=== PATIENT | female | born 1985 | race Hispanic/Latino ===

== ENCOUNTER 2018-10-11 15:52 | Emergency (ER) | payer SELFPAY ==
[2018-10-11 16:30] LABS: HCG,QUAL RESULT POSITIVE (NEGATIVE)
[2018-10-11 16:31] LABS: APPEARANCE,URINE Clear (CLEAR); BILIRUBIN,URINE Negative (NEGATIVE); COLOR,URINE Yellow (YELLOW); GLUCOSE, URINE (UA) Negative (NEGATIVE); KETONES,URINE Negative (NEGATIVE); LEUKOCYTE ESTERASE ,URINE Negative (NEGATIVE); NITRATE,URINE Negative (NEGATIVE); OCCULT BLOOD,URINE Negative (NEGATIVE); PROTEIN,URINE Negative (NEGATIVE)
[2018-10-11] MEDS ORDERED: SODIUM CHLORIDE 0.9% 1000ML 1,000 ML IV ONE (17:08)
[2018-10-11 17:15] LABS: BASOPHILS % (AUTO) 0.6 % (0.0-5.0); EOSINOPHILS % (AUTO) 0.5 % (0.0-8.0); HEMATOCRIT 39.2 % (36-48); LYMPHOCYTES % (AUTO) 23.7 % (21.0-51.0); MEAN CORPUSCULAR HGB CONC 34.6 g/dL (32.0-36.0); MEAN CORPUSCULAR VOLUME 95.3 fL (79-99); MONOCYTES % (AUTO) 8.7 % (3.0-13.0); NEUTROPHILS % (AUTO) 66.5 % (40.0-77.0); PLATELET COUNT (AUTO) 220 K/uL (130-400); RED BLOOD CELL COUNT(AUTO) 4.12 MIL/uL (4.00-5.50); RED CELL DISTRIBUTION WIDTH 13.1 % (11.0-15.5); WHITE BLOOD COUNT (AUTO) 5.5 K/uL (4.8-10.8)
[2018-10-11 17:26] LABS: CREATININE 0.6 mg/dL (0.5-1.5); POTASSIUM 3.4 mmol/L (3.5-5.1)
[2018-10-11 17:53] LABS: BILIRUBIN,DIRECT 0.1 mg/dL (0.0-0.3); BILIRUBIN,TOTAL 0.4 mg/dL (0.2-1.0); TOTAL PROTEIN, SERUM 7.7 g/dL (6.0-8.3)
[2018-10-11] MEDS ORDERED: ACETAMINOPHEN 325 MG TAB ONE (18:03)
== END 2018-10-11 18:09 | disposition home or self-care (01) ==
LOC: EDH 15:52
DX: O26.891 Other specified pregnancy related conditions, first trimester (principal); R10.2 Pelvic and perineal pain; R10.31 Right lower quadrant pain; Z3A.01 Less than 8 weeks gestation of pregnancy
CPT/HCPCS: 36415; 76705; 76801; 80048; 80076; 81003; 81025; 84702; 85025; 86900; 86901; 99284; J7030

== ENCOUNTER 2019-06-06 00:14 | Emergency (ER) | payer OTHER ==
[2019-06-06 00:42] LABS: BASOPHILS % (AUTO) 0.4 % (0.0-5.0); EOSINOPHILS % (AUTO) 0.9 % (0.0-8.0); HEMATOCRIT 41.8 % (36-48); LYMPHOCYTES % (AUTO) 27.3 % (21.0-51.0); MEAN CORPUSCULAR HEMOGLOBIN 33.5 pg (27.0-33.0); MEAN CORPUSCULAR HGB CONC 34.4 g/dL (32.0-36.0); MEAN CORPUSCULAR VOLUME 97.5 fL (79-99); MONOCYTES % (AUTO) 6.9 % (3.0-13.0); NEUTROPHILS % (AUTO) 64.5 % (40.0-77.0); NUCLEATED RED BLOOD CELLS 0.1 % (0.0-0.19); PLATELET COUNT (AUTO) 187 K/uL (130-400); RED BLOOD CELL COUNT(AUTO) 4.29 MIL/uL (4.00-5.50); RED CELL DISTRIBUTION WIDTH 13.1 % (11.0-15.5); WHITE BLOOD COUNT (AUTO) 7.2 K/uL (4.8-10.8)
[2019-06-06 00:47] LABS: APPEARANCE,URINE Clear (CLEAR); BILIRUBIN,URINE Negative (NEGATIVE); COLOR,URINE Yellow (YELLOW); GLUCOSE, URINE (UA) Negative (NEGATIVE); KETONES,URINE Negative (NEGATIVE); LEUKOCYTE ESTERASE ,URINE Negative (NEGATIVE); NITRATE,URINE Negative (NEGATIVE); OCCULT BLOOD,URINE Negative (NEGATIVE); PROTEIN,URINE Negative (NEGATIVE)
[2019-06-06 00:48] LABS: CREATININE 0.7 mg/dL (0.5-1.5); POTASSIUM 3.3 mmol/L (3.5-5.1)
[2019-06-06 00:50] LABS: HCG,QUAL RESULT POSITIVE (NEGATIVE)
[2019-06-06 00:53] LABS: ALBUMIN 4.4 g/dL (3.5-5.0); BILIRUBIN,DIRECT 0.1 mg/dL (0.0-0.3); BILIRUBIN,TOTAL 0.3 mg/dL (0.2-1.0); TOTAL PROTEIN, SERUM 8.3 g/dL (6.0-8.3)
== END 2019-06-06 02:01 | disposition home or self-care (01) ==
LOC: EDH 00:14
DX: O26.891 Other specified pregnancy related conditions, first trimester (principal); O34.81 Maternal care for other abnormalities of pelvic organs, first trimester; R10.31 Right lower quadrant pain; N83.299 Other ovarian cyst, unspecified side; Z3A.01 Less than 8 weeks gestation of pregnancy
CPT/HCPCS: 36415; 76817; 80048; 80076; 81003; 81025; 84702; 85025

== ENCOUNTER 2019-07-22 19:35 | Emergency (ER) | payer OTHER ==
[2019-07-22] MEDS ORDERED: SODIUM CHLORIDE 0.9% 1000ML 1,000 ML IV ONE (20:00)
[2019-07-22] MEDS ORDERED: ONDANSETRON HCL 4 MG/2 ML VIAL ONE (20:01)
[2019-07-22 20:20] LABS: BASOPHILS % (AUTO) 0.6 % (0.0-5.0); EOSINOPHILS % (AUTO) 0.2 % (0.0-8.0); HEMATOCRIT 39.4 % (36-48); LYMPHOCYTES % (AUTO) 20.5 % (21.0-51.0); MEAN CORPUSCULAR HEMOGLOBIN 33.7 pg (27.0-33.0); MEAN CORPUSCULAR VOLUME 93.7 fL (79-99); MONOCYTES % (AUTO) 5.3 % (3.0-13.0); NEUTROPHILS % (AUTO) 73.4 % (40.0-77.0); PLATELET COUNT (AUTO) 161 K/uL (130-400); RED BLOOD CELL COUNT(AUTO) 4.21 MIL/uL (4.00-5.50); RED CELL DISTRIBUTION WIDTH 13.1 % (11.0-15.5); WHITE BLOOD COUNT (AUTO) 6.6 K/uL (4.8-10.8)
[2019-07-22 20:35] LABS: CREATININE 0.6 mg/dL (0.5-1.5); POTASSIUM 3.3 mmol/L (3.5-5.1)
[2019-07-22 21:01] LABS: BILIRUBIN,TOTAL 0.8 mg/dL (0.2-1.0)
[2019-07-22 21:57] LABS: APPEARANCE,URINE Clear (CLEAR); BILIRUBIN,URINE Negative (NEGATIVE); COLOR,URINE Dark Yellow (YELLOW); GLUCOSE, URINE (UA) Negative (NEGATIVE); KETONES,URINE >=160 mg/dL (NEGATIVE); LEUKOCYTE ESTERASE ,URINE Trace (NEGATIVE); NITRATE,URINE Negative (NEGATIVE); OCCULT BLOOD,URINE Negative (NEGATIVE); PROTEIN,URINE Negative (NEGATIVE)
[2019-07-22 22:06] LABS: BACTERIA,URINE Few /HPF (None Seen)
[2019-07-22 22:07] LABS: MUCUS,URINE Few LPF (None Seen); SQUAMOUS EPITHELIAL CELL,UR 0-2 /HPF (0-2)
[2019-07-22] MEDS ORDERED: LACTATED RINGERS 1000ML 1,000 ML IV ONE (22:46)
[2019-07-22] MEDS ORDERED: POTASSIUM BICARB/CIT AC 25 MEQ TABLET.EFF ONE (22:46)
== END 2019-07-23 00:10 | disposition home or self-care (01) ==
LOC: EDH 19:35
DX: O26.891 Other specified pregnancy related conditions, first trimester (principal); R11.2 Nausea with vomiting, unspecified; R10.9 Unspecified abdominal pain; Z3A.11 11 weeks gestation of pregnancy
CPT/HCPCS: 36415; 76801; 80053; 81001; 84702; 85025; 96361; 96374; 99285; J2405; J7030; J7120

== ENCOUNTER 2019-07-26 07:46 | Emergency (ER) | payer OTHER ==
[2019-07-26 08:06] LABS: BILIRUBIN,URINE SMALL (NEGATIVE); COLOR,URINE YELLOW (YELLOW); GLUCOSE, URINE (UA) NEGATIVE (NEGATIVE); KETONES,URINE >=80 mg/dL (NEGATIVE); LEUKOCYTE ESTERASE ,URINE MODERATE (NEGATIVE); NITRATE,URINE NEGATIVE (NEGATIVE); OCCULT BLOOD,URINE LARGE (NEGATIVE); PROTEIN,URINE 30 mg/dL (NEGATIVE)
[2019-07-26 08:09] LABS: APPEARANCE,URINE CLOUDY (CLEAR)
[2019-07-26 08:46] LABS: BACTERIA,URINE Few /HPF (None Seen)
[2019-07-26] MEDS ORDERED: ACETAMINOPHEN 325 MG TAB ONE (08:50)
== END 2019-07-26 09:01 | disposition home or self-care (01) ==
LOC: EDH 07:46
DX: O20.0 Threatened abortion (principal); O23.42 Unspecified infection of urinary tract in pregnancy, second trimester; Z3A.15 15 weeks gestation of pregnancy
CPT/HCPCS: 81001

== ENCOUNTER 2019-08-24 21:37 | Emergency (ER) | payer MEDICAID, OTHER ==
[2019-08-24 22:40] LABS: APPEARANCE,URINE Clear (CLEAR); BILIRUBIN,URINE Negative (NEGATIVE); COLOR,URINE Yellow (YELLOW); GLUCOSE, URINE (UA) Negative (NEGATIVE); KETONES,URINE Negative (NEGATIVE); LEUKOCYTE ESTERASE ,URINE Trace (NEGATIVE); NITRATE,URINE Negative (NEGATIVE); OCCULT BLOOD,URINE Negative (NEGATIVE); PH,URINE 8.5 (5.0-8.0); PROTEIN,URINE Negative (NEGATIVE)
[2019-08-24] MEDS ORDERED: PROMETHAZINE HCL 25 MG/ML 1ML AMPULE IM ONE (22:47)
[2019-08-24 22:51] LABS: AMORPHOUS SEDIMENT,UR Few /LPF (None Seen); BACTERIA,URINE Few /HPF (None Seen); RBC,URINE None Seen /HPF (0-1)
[2019-08-24 22:54] LABS: BASOPHILS % (AUTO) 0.3 % (0.0-5.0); HEMATOCRIT 33.5 % (36-48); LYMPHOCYTES % (AUTO) 27.6 % (21.0-51.0); MEAN CORPUSCULAR HEMOGLOBIN 35.1 pg (27.0-33.0); MEAN CORPUSCULAR HGB CONC 36.8 g/dL (32.0-36.0); MEAN CORPUSCULAR VOLUME 95.5 fL (79-99); MONOCYTES % (AUTO) 8.3 % (3.0-13.0); NEUTROPHILS % (AUTO) 62.8 % (40.0-77.0); PLATELET COUNT (AUTO) 178 K/uL (130-400); RED BLOOD CELL COUNT(AUTO) 3.51 MIL/uL (4.00-5.50); RED CELL DISTRIBUTION WIDTH 14.1 % (11.0-15.5)
[2019-08-24 23:06] LABS: CREATININE 0.5 mg/dL (0.5-1.5); POTASSIUM 3.6 mmol/L (3.5-5.1)
[2019-08-24 23:10] LABS: ALBUMIN 3.2 g/dL (3.5-5.0); BILIRUBIN,TOTAL 0.4 mg/dL (0.2-1.0); MAGNESIUM 1.9 mg/dL (1.80-2.40); TOTAL PROTEIN, SERUM 6.6 g/dL (6.0-8.3)
[2019-08-24 23:17] LABS: PLATELET MORPHOLOGY PLT CLUMPS PRESENT
== END 2019-08-25 00:32 | disposition home or self-care (01) ==
LOC: EDH 21:37
DX: O21.0 Mild hyperemesis gravidarum (principal); Z3A.15 15 weeks gestation of pregnancy
CPT/HCPCS: 36415; 80053; 81001; 83735; 85025; 87804 ×2; 96372; 99284; J2550

== ENCOUNTER 2022-09-07 08:32 | Emergency (ER) | payer MEDICAID, OTHER ==
[~2022-09-07] VITALS: Ht 157.5 cm; Wt 80.3 kg
[2022-09-07] MEDS ORDERED: ACETAMINOPHEN 500 MG TABLET PO STA (09:00)
[2022-09-07 09:15] VITALS: BP 126/74
[2022-09-07] MEDS ORDERED: KETOROLAC 30MG VIAL (30MG/ML) IM ONE (10:30)
[2022-09-07] MEDS ORDERED: NAPR375T6 PO (10:31)
[2022-09-07] MEDS ORDERED: METH-662 PO (10:31)
== END 2022-09-07 11:00 | disposition home or self-care (01) ==
LOC: EDH 08:32
DX: S70.02XA Contusion of left hip, initial encounter (principal); S30.0XXA Contusion of lower back and pelvis, initial encounter; W01.0XXA Fall on same level from slipping, tripping and stumbling without subsequent striking against object, initial encounter; Y93.01 Activity, walking, marching and hiking; Y92.89 Other specified places as the place of occurrence of the external cause; Y99.8 Other external cause status
CPT/HCPCS: 99284; 81025; 73502; 72100; 96372; J1885

== ENCOUNTER 2025-08-01 15:22 | Emergency (ER) | payer SELFPAY ==
[~2025-08-01] VITALS: Ht 157.5 cm; Wt 93.4 kg
[~2025-08-01 15:22] MED LIST: METH-662 PO; NAPR-1505 PO
--- NOTE | 2025-08-01 15:42 | ERN ---
ED Note History of Present Illness Stated Complaint: ABDOMINAL PAIN Chief Complaint: Abdominal Pain Time Seen by MD: 15:36 Dictation: PATIENT IS A 40-YEAR-OLD FEMALE COMING IN GO WITH THE ACUTE ONSET OF RIGHT LOWER QUADRANT PAIN WITH NAUSEA ONSET WAS LAST NIGHT. SHE DENIES FEVER CHILLS. STATES SHE HAS A HISTORY OF CERVICAL CANCER. NO PRIMARY CARE DOCTOR PATIENT DID OFFER THAT SHE WAS ABLE TO FIND ON HER PHONE THAT SHE GOES TO [facility] IN [facility] FOR ONCOLOGY FOR HER CERVICAL CANCER. SHE SAYS SHE HAS A AN APPOINTMENT WITH HIM NEXT WEEK. Allergies: Coded Allergies: No Known Drug Allergies (Unverified Allergy, Unknown, 06/06/19) Home Meds Active Scripts Methocarbamol (Robaxin) 750 Mg Tab, 750 MG PO BID for 4 Days, #8 TAB Prov:HAI ARMENTA MD 09/07/22 Naproxen (Naproxen) 375 Mg Tablet.dr, 375 MG PO BID for 10 Days, #20 TAB Prov:HAI ARMENTA MD 09/07/22 Past Medical History Past Medical History: Cancer Surgical History: None History: Not Applicable RN Note Reviewed/Agreed w/PFSH: Yes Review of System Dictation CONSTITUTIONAL: NEGATIVE EXCEPT FOR HPI HEAD/FACE: NEGATIVE EXCEPT FOR HPI EENT: NEGATIVE EXCEPT FOR HPI RESPIRATORY: NEGATIVE EXCEPT FOR HPI GASTROINTESTINAL/ABDOMINAL: NEGATIVE EXCEPT FOR HPI ACUTE RIGHT LOWER QUADRANT PAIN GENITOURINARY: NEGATIVE EXCEPT FOR HPI MUSCULOSKELETAL: NEGATIVE EXCEPT FOR HPI INTEGUMENTARY: NEGATIVE EXCEPT FOR HPI NEUROLOGICAL/PSYCH: NEGATIVE EXCEPT FOR HPI HEMATOLOGIC/LYMPHATIC: NEGATIVE EXCEPT FOR HPI ALL SYSTEMS NEGATIVE, EXCEPT NOTED ABOVE. 13 POINT REVIEW OF SYSTEMS ASSESSED AND ALL NEGATIVE EXCEPT FOR ABOVE. Initial Vital Sign VS Vital Signs Date Time Temp Pulse Resp B/P (MAP) Pulse Ox O2 Delivery O2 Flow Rate FiO2 08/01/25 15:23 98.2 68 18 136/61 99 Room Air 08/01/25 15:30 0 21 Physical Exam Dictation VITAL SIGNS REVIEWED GENERAL APPEARANCE: ALERT, ORIENTED X 3, SEVERE ACUTE DISTRESS, WELL DEVELOPED, NOURISHED. OBESE HEAD AND FACE: NON-TRAUMATIC. EYES: PERRL, PINK CONJUNCTIVAS, EYELID NO TRAUMA, ANTERIOR CHAMBER WITH ARCUS SENILIS. EARS: PINNAS INTACT AND NO SIGNS OF TRAUMA OR ERYTHEMA EAR CANALS CLEAR AND NO D ISCHARGE TM NO ERYTHEMA NOSE: NO DISCHARGE, NO BLEEDING. OROPHARYNX: MOUTH NORMAL, TONGUE PINK, PHARYNX CLEAR,NO ERYTHEMA, TONSILS NO EXUDATES, NO ABSCESSES NOTED, MUCOUS MEMBRANE MOIST NECK: SUPPLE, NON-TENDER, NO THYROMEGALY, NO MASSES, NO JVD, NO BRUITS BREAST:DEFERRED CHEST:NO TENDERNESS, NO CREPITUS, NO PARADOXICAL MOVEMENT, NO RETRACTIONS LUNGS:CLEAR, WELL-VENTILATED, SYMMETRIC, NO RALES, NO WHEEZING, NO RHONCHI, NO STRIDOR, GOOD BREATH SOUNDS BILATERALLY HEART: REGULAR RATE, REGULAR RHYTHM, NO MURMUR, NO GALLOPS VASCULAR: NO PERIPHERAL EDEMA, ABDOMEN: SOFT, POSITIVE BOWEL SOUNDS, NONDISTENDED, NO GUARDING, RIGHT LOWER QUADRANT PAIN WITH REBOUND TENDERNESS RECTAL: DEFERRED GENITAL: DEFERRED NEUROLOGICAL: NORMAL SPEECH, MOTOR FUNCTION INTACT, SENSORY FUNCTION INTACT MUSCULOSKELETAL: NECK NONTENDER, FULL RANGE OF MOTION, BACK NONTENDER, FULL RA NGE OF MOTION, EXTREMITIES: NONTENDER, FULL RANGE OF MOTION SKIN: COLOR PINK, DRY, NO TURGOR, NO RASH, NO LACERATIONS, NO ABRASIONS, NO CONTUSIONS. LYMPHATIC: DEFERRED Results (Laboratory/Radiology) Laboratory/Radiology Laboratory Tests Test 08/01/25 15:32 08/01/25 15:55 Urine Color LIGHT-YELLOW (YELLOW) Urine Appearance CLEAR (CLEAR) Urine pH 8.0 (5.0-8.0) Urine Specific [place] 1.018 (1.001-1.031) Urine Protein NEGATIVE mg/dL (NEGATIVE) Urine Glucose (UA) NEGATIVE mg/dL (NEGATIVE) Urine Ketones NEGATIVE mg/dL (NEGATIVE) Urine Occult Blood MODERATE (NEGATIVE) H Urine Nitrate NEGATIVE (NEGATIVE) Urine Bilirubin NEGATIVE mg/dL (NEGATIVE) Urine Urobilinogen 0.2 mg/dL (0.2-1.0) Urine Leukocyte Esterase NEGATIVE Gil/uL Urine RBC TNTC /HPF (0-1) H Urine WBC 0-1 /HPF (0-1) Urine Squamous Epithelial Cells FEW /HPF (0-2) Urine Bacteria None /HPF (None Seen) Urine HCG, Qualitative NEGATIVE (NEGATIVE) White Blood Count 11.7 K/uL (4.8-10.8) H Red Blood Count 4.11 MIL/uL (4.00-5.50) Hemoglobin 13.2 g/dL (12.0-16.0) Hematocrit 39.0 % (36-48) Mean Corpuscular Volume 94.9 fL (79-99) Mean Corpuscular Hemoglobin 32.1 pg (27.0-33.0) Mean Corpuscular Hemoglobin Concent 33.8 g/dL (32.0-36.0) Red Cell Distribution Width 12.4 % (11.0-15.5) Platelet Count 231 K/uL (130-400) Mean Platelet Volume 10.1 fL (7.5-10.5) Immature Granulocyte % (Auto) 0.3 % (0-1) Neutrophils (%) (Auto) 72.3 % (40.0-77.0) Lymphocytes (%) (Auto) 19.3 % (21.0-51.0) L Monocytes (%) (Auto) 7.1 % (3.0-13.0) Eosinophils (%) (Auto) 0.6 % (0.0-8.0) Basophils (%) (Auto) 0.4 % (0.0-5.0) Neutrophils # (Auto) 8.5 K/uL (1.8-7.7) H Lymphocytes # (Auto) 2.3 K/uL (1.0-4.8) Monocytes # (Auto) 0.8 K/uL (0.1-1.0) Eosinophils # (Auto) 0.07 K/uL (0.00-0.70) Basophils # (Auto) 0.05 K/uL (0.00-0.20) Absolute Immature Granulocyte (auto 0.03 K/uL (0-1) Nucleated Red Blood Cells 0.0 % (0.0-0.19) Sodium Level 139 mmol/L (136-145) Potassium Level 3.9 mmol/L (3.5-5.1) Chloride Level 100 mmol/L (101-111) L Carbon Dioxide Level 28 mmol/L (21-32) Blood Urea Nitrogen 19 mg/dL (7-18) H Creatinine 0.8 mg/dL (0.5-1.0) Glomerular Filtration Rate Calc 95 mL/min (>90) Random Glucose 125 mg/dL (70-105) H Total Calcium 9.0 mg/dL (8.5-10.1) Lipase 58 U/L (16-77) TECHNIQUE Volumetric helical CT images of the abdomen and pelvis with contrast FINDINGS Liver: Normal. Gallbladder: No calcified gallstones or sludge. No wall thickening. Biliary System: Non-dilated. Pancreas: Normal. Spleen: Normal. Adrenals: Normal. Kidneys: Mild right hydronephrosis with delayed nephrogram and mild perinephric fluid. Ureters: Mild ureterectasis on the right with 4 mm calcification in the distal right ureter. Normal left ureter. Bladder: Normal. Pelvis: No pelvic masses. No abnormal pelvic fluid. Stomach: Normal. Duodenum: Normal. Small Bowel: Normal. Colon: Mild diverticulosis without inflammation. Appendix: Normal. Lymph Nodes: No lymphadenopathy. Peritoneum: No ascites or free air. Retroperitoneum: Normal. Vessels: Normal. Abdominal Wall: Normal. Bones: Normal. Lung Bases: Normal. Inferior Mediastinum: Normal. IMPRESSION 4 mm distal right ureteral calculus with mild right hydroureteronephrosis. Delayed nephrogram and perinephric inflammation are likely secondary to obstructive uropathy, however infection is not excluded and should be correlated clinically. /[facility] Labs Reviewed?: Yes ED Course ED Course Orders Procedure Category Date Status Time Cbc With Differential LAB 08/01/25 Complete 15:37 ,Urine Test LAB 08/01/25 Complete 15:37 Urinalysis Profile LAB 08/01/25 Complete 15:37 0.9%Nacl 1000ml (Ns PHA 08/01/25 Complete 1000ml) 16:00 Morphine 2mg Syg PHA 08/01/25 Complete (Morphine 2mg Syg) 16:00 Ondansetron 4mg Inj PHA 08/01/25 Complete (Zofran 4mg Inj) 16:00 Lipase LAB 08/01/25 Complete 15:37 Basic Metabolic Panel LAB 08/01/25 Complete 15:37 Ct Abdomen/Pelvis CT 08/01/25 Resulted W/Contrast 15:37 Ketorolac PHA 08/01/25 Complete Tromethamine 30mg/Ml 16:30 Iohexol (Omnipaque) PHA 08/01/25 Complete 16:30 Tamsulosin Hcl PHA 08/01/25 Complete (Flomax) 18:00 Ibuprofen 800 Mg Tab PHA 08/01/25 Complete (Motrin) 18:00 Amox/Clav 875/125mg PHA 08/01/25 Transmitted Tab (Augmentin 875-1 18:30 Current Medications Medications (Trade) Dose Ordered Sig/Trina Route PRN Reason Start Time Stop Time Status Last Admin Dose Admin Ibuprofen (moTRIN) 800 mg ONCE ONCE PO 08/01/25 18:00 08/01/25 18:01 DC 08/01/25 18:00 Iohexol (Omnipaque) 75 ml STK-MED ONCE IV 08/01/25 16:30 08/01/25 16:30 DC Ketorolac Tromethamine (toRADol) 30 mg ONCE ONCE IVP 08/01/25 16:30 08/01/25 16:31 DC 08/01/25 16:30 Morphine Sulfate (morPHINE 2MG SYG) 2 mg ONCE ONCE IVP 08/01/25 16:00 08/01/25 16:01 DC 08/01/25 15:57 Ondansetron HCl (zoFRAN 4MG INJ) 4 mg ONCE ONCE IVP 08/01/25 16:00 08/01/25 16:01 DC 08/01/25 15:57 Sodium Chloride 1,000 ml @ 0 mls/hr ONCE ONCE IV 08/01/25 16:00 08/01/25 16:01 DC 08/01/25 15:57 Tamsulosin HCl (FloMAX) 0.4 mg ONCE ONCE PO 08/01/25 18:00 08/01/25 18:01 DC 08/01/25 18:00 Vital Signs Date Time Temp Pulse Resp B/P (MAP) Pulse Ox O2 Delivery O2 Flow Rate FiO2 08/01/25 17:29 98.8 56 17 141/65 100 Room Air* 0 21 08/01/25 15:30 98.4 61 20 158/71 100 Room Air* 0 21 08/01/25 15:23 98.2 68 18 136/61 99 Room Air 1820/PATIENT STATES PAIN IS MARKEDLY IMPROVED AFTER TREATMENT. SHE IS AWARE SHE HAS MILD HYDRO URETERAL NEPHROSIS WITH A 4 MM STONE AND NORMAL BUN AND CREATININE. SHE WILL BE GIVEN FLOMAX LEVAQUIN AND IBUPROFEN P.O. REFERRED TO HER ONCOLOGIST IN [facility] TOMORROW OR SHE CAN SEE , CALL FOR AN APPOINTMENT TOMORROW. Medical Decision Making MDM MDM: DIFFERENTIAL DIAGNOSIS: UTI/PYELONEPHRITIS/UROLITHI ASIS/CHOLEDOCHOLITHIASIS/DIVERTICULITIS/APPENDICITIS/ELECTROLYTE IMBALANCE/DEHYDRATION/HERNIA RATIONALE: TESTS CONSIDERED AND ORDERED SECONDARY TO SHARED DECISION MAKING INCLUDE: LABS/RADIOLOGY PREVIOUS OUTSIDE RECORDS REVIEWED: OLD ER VISITS. RISK OF COMPLICATION AND/OR MORBIDITY OR MORTALITY OF PATIENT MANAGEMENT: NONE MEDICATIONS-PER MEDICATION RECONCILIATION NEED FOR HOSPITALIZATION: PATIENT DOES NOT MEET CRITERIA FOR HOSPITALIZATION. NO NEED FOR EMERGENCY MAJOR/MINOR SURGERY: NO THERE ARE NO SOCIAL CONCERNS WITH THIS PATIENT. PRESCRIPTION DRUG MANAGEMENT FLOMAX/IBUPROFEN/AUGMENTIN PRESCRIPTIONS WILL INCLUDE SYMPTOMATIC CARE PATIENT'S PRIOR EXTERNAL MEDICAL RECORDS FROM OTHER ER VISITS WERE REVIEWED BY ME INDICATED. PRIOR TESTING AND RESULTS FROM PREVIOUS VISITS WERE REVIEWED. PRIOR TESTS WERE TAKEN INTO ACCOUNT WITH MEDICAL DECISION MAKING AND RESOURCE UTILIZATION, INDEPENDENT HISTORIAN/HISTORIANS WERE USED TO OBTAIN COMPLETE MEDICAL HISTORY. I INDEPENDENTLY INTERPRETED THE TEST THAT WERE PERFORMED, RESULTS WERE REVIEWED BY ME AND CONSIDERED FINDINGS ON RADIOLOGY IF ORDERED. MEDICAL MANAGEMENT AND EXAMINATION INTERPRETATION DISCUSSIONS WERE HAD BY ME WITH OTHER QUALIFIED HEALTHCARE PROFESSIONALS INDICATED FOR THE PATIENT'S CARE. DX & DISP Disposition: Discharge Departure Impression: Primary Impression: Urolithiasis Additional Impressions: Hydronephrosis, right, Ureteral colic Condition: Stable Scripts Amoxicillin/Potassium Clav (Amox Tr-K Clv 875-125 mg Tab) 875 Mg-125 Mg Tablet 1 EACH PO BID for 7 Days, #14 TAB 0 Refills Prov: LIVIER LIU NP 08/01/25 Ibuprofen (Ibuprofen 800 mg Tab) 800 Mg Tab 800 MG PO Q8H PRN for fever or pain, #30 TAB 0 Refills Prov: LIVIER LIU NP 08/01/25 Tamsulosin HCl (Flomax) 0.4 Mg Cap.er.24h 0.4 MG PO DAILY for 14 Days, #14 CAPSULE. Prov: LIVIER LIU NP 08/01/25 Additional Instructions: FOLLOW-UP WITH PRIMARY CARE PROVIDER IN 1 TO 2 DAYS. TAKE MEDICATIONS DIRECTED HERE IN THE EMERGENCY ROOM. OKAY TO CONTINUE HOME MEDICATIONS UNLESS OTHERWISE DISCUSSED DURING YOUR VISIT IN THE EMERGENCY ROOM TODAY. RETURN TO YOUR NEAREST EMERGENCY ROOM IF SYMPTOMS WORSEN OR IF THERE IS NO IMPROVEMENT. CALL 911 IF YOU NEED IMMEDIATE ASSISTANCE. TAKE TYLENOL OR MOTRIN [id number] NEEDED AND IF NO CONTRAINDICATIONS ARE PRESENT. INCREASE ORAL HYDRATION. A WOUND CULTURE OR URINE CULTURE WAS ORDERED HERE IN THE EMERGENCY ROOM DEPARTMENT PLEASE FOLLOW-UP WITH PRIMARY CARE PROVIDER AND ADVISE THEM TO GET REPEAT PORTS FROM OUR FACILITY. IF YOU HAD ANY BRUCE WRAP/SPLINTS THAT WERE APPLIED HERE, PLEASE DO NOT REMOVE THEM UNTIL YOU SEE YOUR PRIMARY CARE OR SPECIALTY. TAKE ANTIBIOTICS DIRECTED UNTIL GONE. TAKE IBUPROFEN EVERY 8 HOURS WITH FOOD FOR THE NEXT THREE DAYS. TAKE FLOMAX DAILY FOR THE NEXT TWO WEEKS. INCREASE YOUR WATER INTAKE. SEE YOUR ONCOLOGIST TOMORROW IN [facility] FOR UROLOGY REFERRAL ORE CALL FOR AN APPOINTMENT. Referrals: SELF,REFERRAL (PCP) MARIA ESTHER BRIGHT MD Time of Disposition: 18:23 I have reviewed the case, and I agree with, Diagnosis and Plan LIVIER LIU NP Aug 01, 2025 15:42
[2025-08-01] MEDS: 0.9%NACL 1000ML 1,000 ML IV ONE (15:57)
[2025-08-01 15:58] LABS: APPEARANCE,URINE CLEAR (CLEAR); GLUCOSE, URINE (UA) NEGATIVE (NEGATIVE); LEUKOCYTE ESTERASE ,URINE NEGATIVE Leu/uL (NEGATIVE); NITRATE,URINE NEGATIVE (NEGATIVE); OCCULT BLOOD,URINE MODERATE (NEGATIVE)
[2025-08-01 16:00] LABS: ADD UA MICROSCOPIC YES
[2025-08-01 16:01] LABS: HCG,QUALITATIVE URINE NEGATIVE (NEGATIVE)
[2025-08-01 16:01] LABS: IMMATURE GRANULOCYTE ABSOLUTE 0.03 K/uL (0-1); NUCLEATED RED BLOOD CELLS 0.0 % (0.0-0.19); PLATELET COUNT (AUTO) 231 K/uL (130-400); RED BLOOD CELL COUNT(AUTO) 4.11 MIL/uL (4.00-5.50); RED CELL DISTRIBUTION WIDTH 12.4 % (11.0-15.5); WHITE BLOOD COUNT (AUTO) 11.7 K/uL (4.8-10.8)
[2025-08-01 16:03] LABS: SQUAMOUS EPITHELIAL CELL,UR FEW /HPF (0-2)
[2025-08-01 16:11] LABS: CREATININE 0.8 mg/dL (0.5-1.0); GLOMERULAR FILTR. RATE CALC 95.0 mL/min (>90); GLUCOSE,RANDOM 125.0 mg/dL (70-105); SODIUM SERUM 139.0 mmol/L (136-145); UREA NITROGEN, BLOOD 19.0 mg/dL (7-18)
[2025-08-01] MEDS ORDERED: IOHEXOL-350 75 ML VIAL IV ONE (16:30)
--- NOTE | 2025-08-01 17:37 | HMCIMG ---
CLINICAL INFORMATION Right lower quadrant pain COMPARISON None. TECHNIQUE Volumetric helical CT images of the abdomen and pelvis with contrast FINDINGS Liver: Normal. Gallbladder: No calcified gallstones or sludge. No wall thickening. Biliary System: Non-dilated. Pancreas: Normal. Spleen: Normal. Adrenals: Normal. Kidneys: Mild right hydronephrosis with delayed nephrogram and mild perinephric fluid. Ureters: Mild ureterectasis on the right with 4 mm calcification in the distal right ureter. Normal left ureter. Bladder: Normal. Pelvis: No pelvic masses. No abnormal pelvic fluid. Stomach: Normal. Duodenum: Normal. Small Bowel: Normal. Colon: Mild diverticulosis without inflammation. Appendix: Normal. Lymph Nodes: No lymphadenopathy. Peritoneum: No ascites or free air. Retroperitoneum: Normal. Vessels: Normal. Abdominal Wall: Normal. Bones: Normal. Lung Bases: Normal. Inferior Mediastinum: Normal. IMPRESSION 4 mm distal right ureteral calculus with mild right hydroureteronephrosis. Delayed nephrogram and perinephric inflammation are likely secondary to obstructive uropathy, however infection is not excluded and should be correlated clinically. /[place]
[2025-08-01] MEDS: AMOX/CLAV 875/125MG TAB PO ONE (18:22)
[2025-08-01] MEDS ORDERED: AMOX1TAB16 PO (18:27)
[2025-08-01] MEDS ORDERED: TAMS-55 PO (18:27)
[2025-08-01] MEDS ORDERED: IBUP-2077 PO (18:27)
[2025-08-01 19:24] VITALS: BP 148/74; PULSE 53; RESP 19; TEMP 98; O2SAT 100
== END 2025-08-01 19:40 | disposition home or self-care (01) ==
LOC: EDH 15:22
DX: N13.2 Hydronephrosis with renal and ureteral calculous obstruction (principal); Z79.899 Other long term (current) drug therapy
CPT/HCPCS: 99285; 74177; 96374; 96375; 96361; 80048; 83690; 85025; 81001; 81025; 36415; J1885; J2270; J7030; J2405; Q9967

== ENCOUNTER 2025-11-01 09:43 | Emergency (ER) | payer SELFPAY ==
[~2025-11-01] VITALS: Ht 157.5 cm; Wt 95.3 kg
[~2025-11-01 09:43] MED LIST changes: +AMOX1TAB16 PO; +IBUP-2077 PO; +TAMS-55 PO
--- NOTE | 2025-11-01 09:55 | ERN ---
General Chief Complaint: Lower Extremity Pain/Injury Stated Complaint: LEFT SIDE PAIN AFTER FALL Time Seen by MD: 09:49 History of Present Illness Initial Comments 40-year-old female, otherwise healthy, obese, who presents for left hip and leg pain. She reports that she fell about a week ago. She has pain to the left hip that radiates down the lateral thigh into the inner knee. Burning sensation increase with movement. Difficulty sitting. She is able to walk ambulatory although has not antalgic gait. No fevers. No midline tenderness. No paresthesias. No urinary symptoms. No retention. Able to stool. No systemic illness. She has been taking ketorolac orally with a minimal relief. Allergies: Coded Allergies: No Known Drug Allergies (Unverified Allergy, Unknown, 06/06/19) Home Meds Active Scripts Amoxicillin/Potassium Clav (Amox Tr-K Clv 875-125 mg Tab) 875 Mg-125 Mg Tablet, 1 EACH PO BID for 7 Days, #14 TAB 0 Refills Prov:LIVIER LIUP 08/01/25 Ibuprofen (Ibuprofen 800 mg Tab) 800 Mg Tab, 800 MG PO Q8H PRN for fever or pain, #30 TAB 0 Refills Prov:LIVIER LIUP 08/01/25 Tamsulosin HCl (Flomax) 0.4 Mg Cap.er.24h, 0.4 MG PO DAILY for 14 Days, #14 CAPSULE.DR Prov:LIVIER LIUP 08/01/25 Methocarbamol (Robaxin) 750 Mg Tab, 750 MG PO BID for 4 Days, #8 TAB Prov:HAI ARMENTA MD 09/07/22 Naproxen (Naproxen) 375 Mg Tablet.dr, 375 MG PO BID for 10 Days, #20 TAB Prov:HAI ARMENTA MD 09/07/22 Past Medical History Past Medical History: Cancer, Renal Disese Medical History Other: CERVICAL CA Past Surgical History: None Female( History) History: Not Applicable LMP: Oct 08, 2025 ROS Dictation CONSTITUTIONAL: No chills, no fever, no weakness, no diaphoresis, no malaise. HEAD/FACE: No signs of trauma. EENT: No eye pain, no blurred vision, no tearing, no double vision, no ear pain, no ear discharge, no nose pain, no nasal congestion, no throat pain, no throat swelling, no mouth pain. RESPIRATORY: No cough, no orthopnea, no SOB, no stridor, no wheezing. CARDIOVASCULAR: No chest pain, no edema, no palpitations, no syncope. GASTROINTESTINAL/ABDOMINAL: No abdominal pain, no constipation, no diarrhea, no nausea, no vomiting. GENITOURINARY: No abnormal discharge, no dysuria, no frequent urination, no he maturia. No complaints of pain in the genitals. MUSCULOSKELETAL: Left hip/leg pain INTEGUMENTARY: No change in color, no change in hair/nails, no dryness, no lesion, no lumps, no rash. NEUROLOGICAL/PSYCH: No anxiety, not depressed, no emotional problem, no headache, no numbness, no pre-existing deficit, no history of seizures, no tremors, no weakness. HEMATOLOGIC/LYMPHATIC: Not anemic, no history of blood clots, no apparent bleeding, no bruising, glands not swollen. All Systems Negative, Except as Noted. Physical Exam Physical Exam Dictation VITAL SIGNS: Reviewed. GENERAL APPEARANCE: Alert, oriented x3, moderate distress due to pain EYES: PERRL, pink conjunctivas, eyelid no trauma, anterior chamber clear. EARS: Pinnas intact and no signs of trauma or erythema. Ear canals clear and no discharge. TMs no erythema. NOSE: No discharge, no bleeding. OROPHARYNX: Mouth normal, teeth no caries, tongue pink. Pharynx clear, no erythema. Tonsils no exudates, no abscesses noted. Mucous membrane moist. NECK: Supple, non-tender, no thyromegaly, no masses, no JVD, no bruits. BREAST: Deferred. CHEST: No tenderness, no crepitus, no paradoxical movement, no retractions. LUNGS: Clear, well-ventilated, symmetric, no rales, no wheezing, no rhonchi, no stridor, good breath sounds bilaterally. HEART: Regular rate, regular rhythm, no murmur, no gallops. VASCULAR: No peripheral edema. ABDOMEN: Soft, positive bowel sounds, nondistended, no guarding, nontender, no rebound, no masses no hepatomegaly, no splenomegaly, no Olsen's sign, no hernias. RECTAL: Deferred. GENITAL: Deferred. NEUROLOGICAL: Normal speech, gross motor function intact, gross sensory function intact. MUSCULOSKELETAL: Neck nontender, full range of motion, back nontender, full range of motion. EXTREMITIES: Nontender, full range of motion. SKIN: Color pink, dry, no turgor, no rash, no lacerations, no abrasions, no contusions. LYMPHATICS: Deferred. MDM CC: Left hip/leg pain Historian: Patient Comorbidities: Obesity Limitations by social determinants of health: None Differential diagnosis: Sciatica, fracture, MSK type pain No red flags for back pain. No midline tenderness, able to flex and extend the hips, knees, ankles. No paresthesias anesthesias urinary continence or bladder dysfunction. Ambulatory the other on antalgic gait. Hip x-ray is unremarkable independently interpreted by me. Patient received IV morphine Toradol and Solu-Medrol in the ER. She does report some improvement of symptoms. We will DC with symptomatic care and pain control. We will recommend PCP follow up. ED Course Orders Procedure Category Date Status Time Hip Unilat 2-3vw Left RAD 11/01/25 Resulted 09:52 Ketorolac PHA 11/01/25 Complete Tromethamine 15mg/Ml 10:00 Morphine 4mg Syg PHA 11/01/25 Complete (Morphine 4mg Syg) 10:00 Orphenadrine Citrate PHA 11/01/25 Complete (Norflex) 10:00 Methylprednisolone PHA 11/01/25 Complete Succ 40mg (Solu-Medro 10:00 Current Medications Medications (Trade) Dose Ordered Sig/Trina Route PRN Reason Start Time Stop Time Status Last Admin Dose Admin Ketorolac Tromethamine (toRADol) 15 mg ONCE ONCE IV 11/01/25 10:00 11/01/25 10:01 DC Methylprednisolone Sodium Succinate (Solu-medROL 40MG) 40 mg ONCE ONCE IVP 11/01/25 10:00 11/01/25 10:01 DC Morphine Sulfate (morPHINE 4MG SYG) 4 mg ONCE ONCE IVP 11/01/25 10:00 11/01/25 10:01 DC Orphenadrine Citrate (Norflex) 60 mg ONCE ONCE IVP 11/01/25 10:00 11/01/25 10:01 DC Vital Signs Date Time Temp Pulse Resp B/P (MAP) Pulse Ox O2 Delivery O2 Flow Rate FiO2 11/01/25 11:27 97.9 70 16 122/70 0 Room Air* 0 21 11/01/25 09:49 97.9 72 16 127/75 98 Room Air* 0 11/01/25 09:44 97.9 70 16 127/75 0 Room Air 0 DX & DISP Disposition: Discharge Departure Impression: Primary Impression: Sciatica Condition: Stable Scripts Acetaminophen (Tylenol) 500 Mg Tab 2 TAB PO Q6HPRN PRN for pain or fever for 15 Days, #60 TAB 0 Refills Prov: JANAY MULLINS DO 11/01/25 Orphenadrine Citrate (Orphenadrine Citrate) 100 Mg Tablet.er 1 TAB PO [id number] PRN for pain for 10 Days, #20 TAB 0 Refills Prov: JANAY MULLINS DO 11/01/25 Lidocaine (Lidocaine Pain Relief) 4 % Adh..patch 1 EACH TP BID PRN for PAIN for 10 Days, #10 ADH.PATCH Prov: JANAY MULLINS DO 11/01/25 Meloxicam (Meloxicam) 15 Mg Tablet 15 MG PO DAILY PRN for PAIN for 10 Days, #10 TAB Prov: JANAY MULLINS DO 11/01/25 Additional Instructions: Your symptoms are consistent with sciatic nerve pain. The x-ray is unremarkable. I have prescribed meloxicam. Take once daily. Do not take this with ketorolac. Take extra Tylenol up to 4 times a day as needed for pain. I have prescribed lidocaine patches to use as needed for pain. I have prescribed orphenadrine, which is a muscle relaxer. Take twice per day as needed. Please follow up with the primary doctor. You may need physical therapy or further studies. Return to the emergency department if you have any concerning symptoms. Referrals: SELF,REFERRAL (PCP) JANAY MULLINS DO Nov 01, 2025 09:55
--- NOTE | 2025-11-01 11:20 | HMCIMG ---
STUDY CR Left Hip, 3 views. HISTORY Left hip pain after fall. TECHNIQUE Three-view radiographic examination of the left hip including the pelvis. COMPARISON None provided. FINDINGS BONES No acute fracture or destructive osseous lesion is identified. Pelvic ring appears intact. JOINTS There is mild bilateral hip osteoarthritis with slight joint space narrowing and small marginal osteophytes. No hip dislocation is seen. SOFT TISSUES The periarticular soft tissues are unremarkable, without soft tissue gas or radiopaque foreign body. IMPRESSION * Mild bilateral hip osteoarthritis. * No acute fracture or dislocation. /[place]
[2025-11-01 11:27] VITALS: BP 122/70; PULSE 70; RESP 16; TEMP 97.9; O2SAT 0
[2025-11-01] MEDS ORDERED: ORPH100T4 PO (11:32)
[2025-11-01] MEDS ORDERED: MELO-108 PO (11:32)
[2025-11-01] MEDS ORDERED: LIDO1ADH71 TP (11:32)
[2025-11-01] MEDS ORDERED: ACET-66 PO (11:32)
[2025-11-01] MEDS: ORPHENADRINE 60MG/2ML IVP ONE (11:57)
[2025-11-01] MEDS: Solu-medROL 40MG VIAL IVP ONE (11:57)
== END 2025-11-01 12:10 | disposition home or self-care (01) ==
LOC: EDH 09:43
DX: M54.32 Sciatica, left side (principal); E66.9 Obesity, unspecified; Z85.41 Personal history of malignant neoplasm of cervix uteri; Z68.38 Body mass index [BMI] 38.0-38.9, adult
CPT/HCPCS: 99284; 96374; 73502; 96375; J1885; J2919; J2270; J2360